=== PATIENT | male | born 2000 | race Caucasian/White ===

== ENCOUNTER 2018-01-06 23:28 | Emergency (ER) | payer OTHER ==
[~2018-01-06] VITALS: Ht 175.3 cm; Wt 68.0 kg
[~2018-01-06 23:28] MED LIST: Amoxicillin500 MG PO; CRUTCH4 XX; CYCL10 PO; HYDR1TAB94 PO; Hydrocodone-Ap1 EA23 PO; IBUP200 PO; Norco 10-325 T1 EACH PO; Pepcid40 MG PO; RXCODACESY PO; RXONDA4ODT MM; SULF10OPSA OD; TRIAMENIC
== END 2018-01-07 00:18 | disposition left against medical advice (07) ==
LOC: ER 23:28
DX: Z53.21 Procedure and treatment not carried out due to patient leaving prior to being seen by health care provider (principal)

== ENCOUNTER 2018-06-12 10:06 | Emergency (ER) | payer OTHER ==
[~2018-06-12] VITALS: Ht 175.3 cm; Wt 72.6 kg
[2018-06-12] MEDS ORDERED: Augmentin 875-1 EACH PO (11:39)
== END 2018-06-12 12:32 | disposition home or self-care (01) ==
LOC: ER 10:06
DX: S01.311A Laceration without foreign body of right ear, initial encounter (principal); W17.89XA Other fall from one level to another, initial encounter; G43.909 Migraine, unspecified, not intractable, without status migrainosus; F17.200 Nicotine dependence, unspecified, uncomplicated
CPT/HCPCS: 12013; 70450; 99283-25